=== PATIENT | female | born 1950 | race Caucasian/White ===

== ENCOUNTER → 2016-06-16 | Outpatient (CLI) | payer MEDICARE, MEDICAID | LOC: YCFC.O 11:27 | PROVIDERS: ATTEND Anesthesiology Pain Medicine | DX: Z79.891 Long term (current) use of opiate analgesic (principal) ==

== ENCOUNTER 2016-08-11 05:38 | Day surgery (SDC) | payer MEDICARE, MEDICAID ==
[2016-08-11] MEDS ORDERED: SODIUM BICARBONATE VIAL 50 MEQ/50 ML VIAL ONE (10:13)
[2016-08-11] MEDS ORDERED: methylPREDNISolone ACETATE 80 MG/ML VIAL ONE (10:13)
[2016-08-11] MEDS ORDERED: SODIUM CHLORIDE 0.9% 10 ML VIAL ONE (10:13)
[2016-08-11] MEDS: LIDOCAINE 1% MPF 5 ML VIAL ONE ×2 (13:38→13:41)
[2016-08-11 14:33] VITALS: BP 161/96; TEMP 96.9; O2SAT 98
== END 2016-08-11 14:00 | disposition home or self-care (01) ==
LOC: AMB 05:38
PROVIDERS: ATTEND Anesthesiology Pain Medicine
DX: M51.16 Intervertebral disc disorders with radiculopathy, lumbar region (principal); K21.9 Gastro-esophageal reflux disease without esophagitis; F41.8 Other specified anxiety disorders; F17.210 Nicotine dependence, cigarettes, uncomplicated; M79.673 Pain in unspecified foot; M17.0 Bilateral primary osteoarthritis of knee; Z98.84 Bariatric surgery status; Z88.0 Allergy status to penicillin; Z88.2 Allergy status to sulfonamides; Z88.8 Allergy status to other drugs, medicaments and biological substances; Z79.899 Other long term (current) drug therapy
CPT/HCPCS: 62323; 76000; J1030

== ENCOUNTER 2016-09-01 12:00 | Day surgery (SDC) | payer MEDICARE, MEDICAID ==
[2016-09-01 14:02] VITALS: O2SAT 99
[2016-09-01] MEDS: LIDOCAINE 1% MPF 5 ML VIAL ONE ×3 (14:15→14:17)
[2016-09-01] MEDS: SODIUM CHLORIDE 0.9% 10 ML VIAL ONE ×2 (14:16→14:17)
[2016-09-01] MEDS: methylPREDNISolone ACETATE 80 MG/ML VIAL ONE ×2 (14:16→14:17)
[2016-09-01 14:47] VITALS: BP 141/91; TEMP 98
== END 2016-09-01 14:30 | disposition home or self-care (01) ==
LOC: AMB 12:00
PROVIDERS: ATTEND Anesthesiology Pain Medicine
DX: M51.16 Intervertebral disc disorders with radiculopathy, lumbar region (principal); M54.5 Low back pain; F17.210 Nicotine dependence, cigarettes, uncomplicated; Z88.0 Allergy status to penicillin; Z88.2 Allergy status to sulfonamides; Z88.8 Allergy status to other drugs, medicaments and biological substances; Z79.899 Other long term (current) drug therapy; F41.8 Other specified anxiety disorders; K21.9 Gastro-esophageal reflux disease without esophagitis; Z98.84 Bariatric surgery status; Z96.653 Presence of artificial knee joint, bilateral; Z96.641 Presence of right artificial hip joint; K59.00 Constipation, unspecified
CPT/HCPCS: 62323; J1030

== ENCOUNTER 2016-09-29 06:06 | Day surgery (SDC) | payer MEDICARE, MEDICAID ==
[2016-09-29] MEDS ORDERED: methylPREDNISolone ACETATE 80 MG/ML VIAL ONE (11:16)
[2016-09-29] MEDS ORDERED: SODIUM CHLORIDE 0.9% 10 ML VIAL ONE (11:16)
[2016-09-29] MEDS ORDERED: LIDOCAINE 1% MPF 5 ML VIAL ONE (11:16)
[2016-09-29 13:49] VITALS: BP 150/81; TEMP 98; O2SAT 97
== END 2016-09-29 13:30 | disposition home or self-care (01) ==
LOC: AMB 06:06
PROVIDERS: ATTEND Anesthesiology Pain Medicine
DX: M51.17 Intervertebral disc disorders with radiculopathy, lumbosacral region (principal); F17.210 Nicotine dependence, cigarettes, uncomplicated; Z98.84 Bariatric surgery status; F41.8 Other specified anxiety disorders; K21.9 Gastro-esophageal reflux disease without esophagitis; Z88.0 Allergy status to penicillin; Z88.8 Allergy status to other drugs, medicaments and biological substances; Z88.2 Allergy status to sulfonamides; Z79.899 Other long term (current) drug therapy
CPT/HCPCS: 62323; 76000; J1030

== ENCOUNTER → 2016-10-07 | Outpatient (CLI) | payer MEDICARE, MEDICAID | LOC: YCFC.O 16:15 | PROVIDERS: ATTEND Anesthesiology Pain Medicine | DX: Z79.891 Long term (current) use of opiate analgesic (principal) ==